=== PATIENT | female | born 1965 | race Caucasian/White ===

== ENCOUNTER 2017-11-29 15:25 | Emergency (ER) | payer OTHER ==
[~2017-11-29] VITALS: Ht 152.4 cm; Wt 115.0 kg
[2017-11-29] MEDS ORDERED: FLEXERIL10 MG PO (16:38)
[2017-11-29] MEDS ORDERED: NAPROXEN500 MG PO (16:38)
[2017-11-29 17:33] VITALS: BP 122/79
== END 2017-11-29 17:34 | disposition home or self-care (01) ==
LOC: EME 15:25
DX: S39.012A Strain of muscle, fascia and tendon of lower back, initial encounter (principal); M54.2 Cervicalgia; V47.1XXA Car passenger injured in collision with fixed or stationary object in nontraffic accident, initial encounter; Y92.410 Unspecified street and highway as the place of occurrence of the external cause; Z88.2 Allergy status to sulfonamides
CPT/HCPCS: 99281; 99283